=== PATIENT | male | born 1990 | race Caucasian/White ===

== ENCOUNTER 2025-04-03 19:39 | Emergency (ER) | payer OTHER, MEDICAID, SELFPAY ==
[2025-04-03 19:41] VITALS: BMI 48.1
[2025-04-03 19:51] VITALS: BP 151/94; PULSE 105; RESP 18; TEMP 36.8; O2SAT 95
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
== END 2025-04-03 20:08 | disposition home or self-care (01) ==
LOC: SERX 20:19
PROVIDERS: Emergency Provider Emergency Medicine
DX: Z04.1 Encounter for examination and observation following transport accident (principal)
CPT/HCPCS: 99281